=== PATIENT | female | born 1985 | race Caucasian/White ===

== ENCOUNTER 2016-12-19 15:40 | Emergency (ER) | payer BC ==
[~2016-12-19] VITALS: Ht 177.8 cm; Wt 72.8 kg
[~2016-12-19 15:40] MED LIST: ONDA4TAB46 PO
[2016-12-19 15:44] VITALS: TEMP 36.8; Ht 177.8 cm; Wt 72.8 kg
[2016-12-19] MEDS ORDERED: TRAMADOL HCL 50 MG TAB PO STA (16:08)
[2016-12-19] MEDS ORDERED: IBUPROFEN 800 MG TAB PO STA (16:08)
[2016-12-19 16:41] LABS: PREG INTERNAL NEGATIVE QC NEG CLEAR BACKGROUND; PREG INTERNAL POSITIVE QC POS CONTROL LINE; URINE APPEARANCE CLOUDY (CLEAR); URINE BILIRUBIN NEG (NEG); URINE COLOR YELLOW; URINE EPITHELIAL CELL AUTO >30 /lpf (0-5); URINE NITRITE NEG (NEG); URINE PH 6.5 (4.5-7.5); URINE SPECIFIC GRAVITY 1.023 (1.000-1.030); UROBILINOGEN NEG (NEG)
[2016-12-19 16:42] LABS: MANUAL MICROSCOPIC REQUIRED? NO; REVIEW REQ? YES
[2016-12-19] MEDS ORDERED: SERT-234 PO (16:49)
[2016-12-19] MEDS ORDERED: SERT50TA PO (16:49)
--- NOTE | 2016-12-19 18:41 | DIAGNOSTIC IMAGING REPORT ---
PELVIC COMPLETE NON OB, TRANSVAG-FEMALE PELVIS CLINICAL HISTORY: 31 years-old Female presenting with LLQ abd pain, dyspareunia, last menstrual period 3 weeks ago. TECHNIQUE: Real-time grayscale and color and spectral Doppler ultrasound imaging of the pelvis was performed first using a transabdominal probe and subsequently transvaginal for better characterization. COMPARISON: 08/02/2007. FINDINGS: Uterus: Arcuate configuration. Anteverted. The uterus measures 8.0 x 3.3 x 5.2 cm. Endometrial stripe measures 8 mm in thickness. Endometrium normal-appearing. Cervix normal. Right adnexa: Right ovary with multiple follicles. Right ovary measures 4.0 x 1.9 x 2.5 cm. Normal color Doppler flow and arterial and venous waveforms within the ovarian parenchyma. Left adnexa: Left ovary with multiple follicles. Left ovary measures 3.8 x 1.5 x 1.9 cm. Normal color Doppler flow and arterial and venous waveforms within the ovarian parenchyma. Other: Trace free fluid, likely physiologic. IMPRESSION: 1. No ovarian torsion. Free fluid is likely physiologic. Electronically signed by: Dm Sousa M.D. 12/19/2016 6:40 PM Dictated Date/Time: 12/19/2016 6:37 PM
[2016-12-19] MEDS ORDERED: OXYC1TAB3 PO (19:18)
[2016-12-19 19:26] VITALS: BP 105/68; PULSE 63; O2SAT 96
--- NOTE | 2016-12-19 20:46 | EMERGENCY ROOM VISIT NOTE ---
History First contact with patient: 15:48 Chief Complaint: ABDOMINAL PAIN Stated Complaint: LOWER LF ABD PAIN Nursing Triage Summary: triage note: pain in the left lower abdominal with nausea, denies v,d normal bm pt states she had (sex two weeks ago and felt pain the next day)used condom History of Present Illness The patient is a 31 year old female who presents to the Emergency Room with complaints of lower abdominal pain since having sex 2 weeks ago. The patient reports a mild clear drainage without malodor. Last menstruation was 3 weeks ago. The patient denies . Patient reports that her last sexual encounter was with a new partner. There was caught in use. Prior to her last sex, she had a partner of 5 years with last sex occurring approximately 2 weeks before her last partner. The patient is concerned that there may be a condom stuck in her vagina. She denies any nausea, vomiting, urinary symptoms, diarrhea or back pain. She does have an appointment scheduled with [facility] on Thursday at 7:45 PM, but came to the emergency department because they could not see her sooner and is having worsening pain. Review of Systems HEENT: Denies dizziness, visual problems, hearing loss, tinnitus. Denies difficulty swallowing or oral lesions. PULMONARY: Denies cough, shortness of breath, sputum production or hemoptysis. CARDIOVASCULAR: Denies chest pain, palpitations, dyspnea on exertion, orthopnea or peripheral edema. GASTROINTESTINAL: Denies diarrhea, constipation, nausea or vomiting, otherwise see history of present illness. GENITOURINARY: Denies dysuria, frequency, urgency or nocturia. NEUROLOGIC: Denies history of epilepsy, CVA, TIA or chronic headaches. MUSCULOSKELETAL: Denies history of joint tenderness/swelling. SKIN: Denies rashes or lesions. PSYCHIATRIC: Denies history of depression or mental illness. ENDOCRINE: Denies history of diabetes or thyroid disorders. Past Medical/Surgical History Medical Problems: (1) Calculus Of Ureter (2) Pyelonephritis Nos (3) Tobacco Use Disorder Surgical Problems: (1) No history of previous surgery Family History FH: cancer FH: diabetes mellitus FH: heart disease FH: hypertension FH: kidney disease Social History Smoking Status: Current Every Day Smoker Alcohol Use: occasionally Marital Status: single Occupation Status: employed Current/Historical Medications Scheduled Sertraline (Zoloft), 50 MG PO DAILY Sertraline (Zoloft), 100 MG PO DAILY Scheduled PRN Oxycodone Ir (Roxicodone Ir), 1-2 TAB PO Q4H PRN for Pain Allergies Coded Allergies: No Known Allergies (Unverified , 04/30/10) Physical Exam Vital Signs Date Time Temp Pulse Resp B/P (MAP) Pulse Ox O2 Delivery O2 Flow Rate FiO2 12/19/16 19:26 63 16 105/68 96 12/19/16 17:56 64 16 108/72 98 Room Air 12/19/16 15:44 36.8 80 18 116/76 98 Room Air Physical Exam CONSTITUTIONAL: Healthy and well nourished. Alert and oriented X 3 with positive affect. Patient does not appear in any acute distress. HEENT: Normocephalic, atraumatic. Pupils equal, round and reactive. Ears and nares are clear. No scleral icterus or conjunctival injection. NECK: Full active range of motion without discomfort. RESPIRATORY: Clear to auscultation bilaterally with no wheezing, crackles, rhonchi or stridor. CARDIOVASCULAR: Regular rate and rhythm with no murmurs, rubs or gallops. GASTROINTESTINAL: Bowel sounds present in all quadrants. Patient has mild suprapubic tenderness to palpation. Negative McBurney's point tenderness. Negative Rovsing sign. Negative CVA tenderness. Negative heel tap. GENITOURINARY: With a female nurse personal security specialist present, speculum and bimanual exam were performed. Normal external genitalia. Speculum exam does not show any vaginal wall trauma. No discomfort with insertion of the speculum. The cervix was not visualized or palpable, suggesting retroflexed uterus. There was no tenderness to palpation over the anterior uterine wall. She has mild tenderness to the left adnexa without any palpable fullness or masses. No tenderness to palpation of the right adnexa. Ovaries could not be palpated. It is noted that the patient does have a white adherent plaque on the visible cervix and vaginal cuff. No obvious malodor. MUSCULOSKELETAL: Full range of motion of all joints without discomfort. INTEGUMENTARY: No rash or other significant dermatologic conditions noted. NEUROLOGIC: No focal neurologic deficits noted. Medical Decision & Procedures ER Provider Diagnostic Interpretation: Pelvic ultrasound does not show any areas acute findings. Radiologist report is as follows: PELVIC COMPLETE NON OB, TRANSVAG-FEMALE PELVIS CLINICAL HISTORY: 31 years-old Female presenting with LLQ abd pain, dyspareunia, last menstrual period 3 weeks ago. TECHNIQUE: Real-time grayscale and color and spectral Doppler ultrasound imaging of the pelvis was performed first using a transabdominal probe and subsequently transvaginal for better characterization. COMPARISON: 08/02/2007. FINDINGS: Uterus: Arcuate configuration. Anteverted. The uterus measures 8.0 x 3.3 x 5.2 cm. Endometrial stripe measures 8 mm in thickness. Endometrium normal-appearing. Cervix normal. Right adnexa: Right ovary with multiple follicles. Right ovary measures 4.0 x 1.9 x 2.5 cm. Normal color Doppler flow and arterial and venous waveforms within the ovarian parenchyma. Left adnexa: Left ovary with multiple follicles. Left ovary measures 3.8 x 1.5 x 1.9 cm. Normal color Doppler flow and arterial and venous waveforms within the ovarian parenchyma. Other: Trace free fluid, likely physiologic. IMPRESSION: 1. No ovarian torsion. Free fluid is likely physiologic. Laboratory Results Test 12/19/16 16:25 Urine Color YELLOW Urine Appearance CLOUDY (CLEAR) Urine pH 6.5 (4.5-7.5) Urine Specific Girard 1.023 (1.000-1.030) Urine Protein NEG (NEG) Urine Glucose (UA) NEG (NEG) Urine Ketones NEG (NEG) Urine Occult Blood NEG (NEG) Urine Nitrite NEG (NEG) Urine Bilirubin NEG (NEG) Urine Urobilinogen NEG (NEG) Urine Leukocyte Esterase MODERATE (NEG) Urine WBC (Auto) 5-10 /hpf (0-5) Urine RBC (Auto) 0-4 /hpf (0-4) Urine Hyaline Casts (Auto) 1-5 /lpf (0-5) Urine Epithelial Cells (Auto) >30 /lpf (0-5) Urine Bacteria (Auto) 1+ (NEG) Urine Test NEG (NEG) Date/Time Source Procedure Growth Status 12/19/16 16:25 Vaginal Drainage Trichomonas Preparation - Final Complete The above labs were reviewed. Urinalysis is not suggestive of infection, showing a contaminated sample. Urine culture is pending. Trichomonas wet mount is negative. STI cultures and vaginal cultures were ordered and are pending. Medications Administered Medications (Trade) Dose Ordered Sig/Gillian Route Start Time Stop Time Status Last Admin Dose Admin Ibuprofen (Motrin Tab) 800 mg NOW STAT PO 12/19/16 16:08 12/19/16 16:15 DC 12/19/16 16:37 800 MG Tramadol HCl (Ultram Tab) 50 mg ONE STAT PO 12/19/16 16:08 12/19/16 16:15 DC 12/19/16 16:37 50 MG ED Course Patient history and physical exam were performed. Nurse's notes were reviewed. Vital signs were reviewed and were normal. Pelvic exam was recommended, and performed with nurse personal security specialist supervision. Examination shows mild left adnexal tenderness to palpation, and white material within the vaginal vault. The cervix could not be palpated. Labs were reviewed to show no Trichomonas or clue cells. Gram stain shows multiple gram-positive bacilli. Vaginal and STI cultures are currently pending. Based on history and physical exam findings, I did suggest continued follow-up with [facility] on Thursday. Although it would be unusual to have diverticulitis or appendicitis over an extended two-week period of time, she was instructed to return to the emergency department for any progressively worsening symptoms. The patient was encouraged to alternate ibuprofen and Tylenol as needed for pain. She was administered IV Zofran 800 mg and tramadol while in the emergency department. She was provided a prescription for OxyIR if needed for worse pain over the weekend. The patient was happy with plan of care, and voiced understanding of all discharge instructions. Medical Decision As indicated in history of present illness, the patient reports onset of discomfort after having vaginal sex 2 weeks ago. The history alone is most consistent with dyspareunia, however she has had persistent and now worsening discomfort. Her clinical exam does show left adnexal tenderness to palpation. Her clinical exam also does not suggest acute peritonitis. She has no rebound, rigidity or guarding at this time. Urinalysis is not convincing for UTI. Clinical exam also is not consistent with pyelonephritis or appendicitis. She has no hematuria to suggest kidney stone. [place] Drug Monitoring Program Search Results: patient reviewed within database Impression Primary Impression: LLQ abdominal pain Additional Impression: Dyspareunia Departure Information Prescriptions Oxycodone Ir (Roxicodone Ir) 5 Mg Tab 1-2 TAB PO Q4H Y for Pain, #15 TAB For Initial Treatment Prov: Ghassan Casey PA 12/19/16 Referrals No Doctor, Assigned (PCP) Patient Instructions [facility] Problem Qualifiers
[2016-12-23 00:44] LABS: CHLAMYDIA TRACH RNA*** NOT DETECTED (NOT DETECTED); GC (NEIS GONORRHOEAE)RNA** NOT DETECTED (NOT DETECTED)
[2016-12-23 14:14] LABS: HERPES SIMPLEX CULT SOURCE OTHER-CERVIX; HERPES SIMPLEX VIRUS CULT NOT ISOLATED (NOT ISOLATED)
== END 2016-12-19 19:30 | disposition home or self-care (01) ==
LOC: C.EDB 15:41 → C.EDA 19:30
DX: R10.32 Left lower quadrant pain (principal); N94.10 Unspecified dyspareunia; Z83.3 Family history of diabetes mellitus; Z82.49 Family history of ischemic heart disease and other diseases of the circulatory system; F17.200 Nicotine dependence, unspecified, uncomplicated

== ENCOUNTER 2020-03-01 22:33 | Inpatient (IN) ==
[2020-03-02] MEDS ORDERED: OXYTOCIN 30 UNITS/500 ML BAG IV PRN ×3 (00:20→19:09)
[2020-03-02] MEDS: LACTATED RINGER'S 1,000 ML IV PRN ×3 (00:45→12:08)
[2020-03-02 00:57] LABS: Hematocrit (blood only) 35.1 % (37-47); Hemoglobin 11.9 g/dL (12.0-16.0); Mean Corpuscular Hemoglobin 30.3 pg (25-34); Mean Corpuscular Hgb Conc 33.9 g/dL (32-36); Mean Corpuscular Volume 89.3 fL (80-100); Mean Platelet Volume 10.2 fL (7.4-10.4); Platelet Count 276 K/uL (130-400); RDW Coefficient of Variation 13.4 % (11.5-14.5); RDW Standard Deviation 43.8 fL (36.4-46.3); Red Blood Count 3.93 M/uL (4.2-5.4); White Blood Count 15.31 K/uL (4.8-10.8)
[2020-03-02] MEDS ORDERED: BUPIVACAINE 0.25% 30 ML VIAL ONE ×2 (00:59→11:46)
[2020-03-02] MEDS ORDERED: ePHEDrine sulfate 50 MG/ML AMP ONE (00:59)
[2020-03-02] MEDS ORDERED: SODIUM CHLORIDE 0.9% INJ 10 ML VIAL ONE (00:59)
[2020-03-02] MEDS ORDERED: fentaNYL citrate 100 MCG/2 ML VIAL ONE (01:00)
[2020-03-02] MEDS ORDERED: fentaNYL 2MCG/ML ROPIVACAINE 1.25MG/ML 100 ML BAG EPI ONE (01:00)
[2020-03-02] MEDS ORDERED: diphenhydrAMINE 50 MG/ML VIAL IV PRN (01:19)
[2020-03-02] MEDS ORDERED: ePHEDrine sulfate 50 MG/ML AMP IV PRN (01:19)
[2020-03-02] MEDS ORDERED: NALOXONE HCL 1 MG in SODIUM CHLORIDE 0.9% 1000ML 1,000 ML IV PRN (01:19)
[2020-03-02] MEDS ORDERED: NALOXONE HCL 0.4 MG/1 ML VIAL/CARP IV PRN (01:19)
[2020-03-02] MEDS ORDERED: ONDANSETRON INJ 2 MG/ML 2 ML VIAL IV PRN (01:19)
--- NOTE | 2020-03-02 01:23 | Anesthesiology Consultation ---
Date of Service March 02, 2020 Assessment & Plan Chart Review Chart Review: Patient NOT seen in Pre Admission Testing and Acceptable Risk for Labor Epidural Consults Requested none ASA ASA2 Proposed Anesthesia Anesthesia Type: Labor Epidural and CSE Risk / Benefits Reviewed With: PT / POA / Parent / Guardian, Accepts Plan and Informed Consent Obtained History Height/Weight Height: 5 ft 10 in Weight: 86.636 kg Allergies Allergy/AdvReac Type Severity Reaction Status Date / Time No Known Allergies Allergy Verified 03/01/20 22:37 Medications Home Medications Medication Instructions Recorded Confirmed Last Taken Sertraline (Zoloft) 50 mg PO DAILY #0 tab 12/19/16 03/01/20 02/28/20 Sertraline (Zoloft) 100 mg PO DAILY #0 tab 12/19/16 03/01/20 02/28/20 Active Medications Generic Name Dose Route Start Last Admin Trade Name Freq PRN Reason Stop Dose Admin Lactated Ringer's 1,000 mls @ 125 mls/hr 03/02/20 00:20 03/02/20 01:17 Lr IV 03/04/20 00:19 125 mls/hr .Q8H PRN Infusion L&D Protocol Protocol NPO Date Last Intake of Fluids: 03/01/20 Time Last Intake of Fluids: 20:00 Date Last Intake of Solids: 03/01/20 Time Last Intake of Solids: 20:00 Past Medical History Medical History Anxiety Idiopathic scoliosis Exercise / Class Metabolic Activity II 4-5 Yardwork/Stairs/Walk up hill Past Anesthesia History No Hx of Anesthesia Complications and No Family Hx of Anesthesia Complications History of PONV No Hx of PONV and No Hx of Motion Sickness Social History Smoking Status: Former smoker Hx Alcohol Use: No Hx Substance Use: No Review of Systems no chest pain or sob Physical Exam Vital Signs Last Vital Signs Pulse 85 03/01/20 23:00 BP 126/69 03/01/20 23:00 SpO2 99 T 37 RR 16 ENMT Mouth: no TMJ abnormality Thyromental Distance: > or= 3.5 Finger Breadths Mallampati Class: II Neck normal visual inspection Respiratory normal respiratory effort Auscultation: lungs clear to auscultation bilaterally Cardiovascular Rate/Rhythm: regular rate and regular rhythm Musculoskeletal Spine: normal cervical ROM Neurologic moves all extremities Psychiatric Orientation: alert and oriented x 3 Testing Laboratory Results 03/02/20 00:31
[2020-03-02] MEDS: fentaNYL 2MCG/ML ROPIVACAINE 1.25MG/ML 100 ML BAG EPI PRN ×3 (01:44→15:56)
--- NOTE | 2020-03-02 08:33 | Obstetrical Progress Note ---
Date of Service March 02, 2020 Assessment & Plan Admission and Anticipated Discharge Date Admission Date: March 02, 2020 Physical Exam Genitourinary: Manual OB Exam: + cervical dilation 9 cm, + cervical effacement 100%, + station 0 and + amniotic fluid clear OB Exam Monitor Tracing: + external FHT monitor used, + external uterine monitor used, + category I and + normal FHT variability AROM with Amni-hook clear fluid Results & Data ([facility]) Vital Signs (Past 12 Hours) Vital Signs Temp Pulse Resp BP Pulse Ox 03/02/20 08:30 78 97 03/02/20 08:29 75 103/64 03/02/20 08:25 79 99 03/02/20 08:21 68 94 03/02/20 08:20 66 94 03/02/20 08:16 66 94 03/02/20 08:15 66 94 03/02/20 08:14 65 105/63 03/02/20 08:11 73 94 03/02/20 08:10 67 95 03/02/20 08:05 67 94 03/02/20 08:00 65 95 03/02/20 07:59 64 107/60 03/02/20 07:56 64 94 03/02/20 07:55 66 95 03/02/20 07:50 59 L 95 03/02/20 07:45 55 L 108/59 L 96 03/02/20 07:40 63 97 03/02/20 07:35 61 97 03/02/20 07:30 88 97 03/02/20 07:29 78 99/54 L 03/02/20 07:25 78 96 03/02/20 07:20 83 97 03/02/20 07:15 72 96 03/02/20 07:14 36.8 C 72 20 105/56 L 03/02/20 07:10 80 96 03/02/20 07:05 76 96 03/02/20 07:00 77 96 03/02/20 06:59 67 106/58 L 03/02/20 06:55 69 97 03/02/20 06:50 69 97 03/02/20 06:45 74 109/57 L 96 03/02/20 06:40 71 97 03/02/20 06:35 72 97 03/02/20 06:30 71 102/59 L 97 12/18/20 06:25 78 97 1218/20 06:20 75 96 1218/20 06:15 68 121/58 L 98 18/20 06:10 91 H 97 03/02/20 06:06 79 94 03/02/20 06:05 76 95 18/20 06:00 71 95 03/02/20 05:59 70 101/66 12/18/20 05:55 71 95 18/20 05:53 73 93 18/20 05:50 70 95 18/20 05:45 81 101/59 L 97 03/02/20 05:40 76 95 1218/20 05:39 74 94 1218/20 05:35 68 94 18/20 05:34 60 94 18/20 05:30 74 94 1218/20 05:29 71 110/60 1218/20 05:28 64 94 18/20 05:25 72 95 18/20 05:22 72 94 03/02/20 05:20 73 94 03/02/20 05:17 68 94 03/02/20 05:15 68 94 03/02/20 05:14 61 109/62 1218/20 05:12 78 94 03/02/20 05:10 72 94 03/02/20 05:05 70 94 03/02/20 05:00 67 104/59 L 94 03/02/20 04:55 65 94 18/20 04:50 67 93 1218/20 04:46 58 L 100/57 L 18/20 04:45 59 L 94 03/02/20 04:40 66 96 18/20 04:38 65 94 18/20 04:35 66 95 18/20 04:33 67 94 1218/20 04:30 63 101/59 L 96 18/20 04:25 64 93 1218/20 04:20 59 L 94 18/20 04:19 62 94 1218/20 04:15 62 95 18/20 04:14 58 L 99/58 L 12/18/20 04:13 58 L 94 18/20 04:10 65 94 1218/20 04:07 60 94 03/02/20 04:05 71 94 12/18/20 04:02 66 94 1218/20 04:00 65 95 12/18/20 03:59 71 100/56 L 1218/20 03:55 67 93 1218/20 03:52 63 94 12/18/20 03:50 69 94 12/18/20 03:45 65 94 1218/20 03:44 62 101/61 12/18/20 03:40 64 92 1218/20 03:38 69 94 1218/20 03:35 63 97 12/18/20 03:30 67 92 12/18/20 03:29 67 107/59 L 1218/20 03:25 65 93 12/18/20 03:21 62 94 12/18/20 03:20 62 94 1218/20 03:15 62 93 1218/20 03:14 59 L 101/56 L 18/20 03:10 63 93 1218/20 03:05 62 93 1218/20 03:03 57 L 94 20 03:00 58 L 104/57 L 94 1218/20 02:57 64 94 1218/20 02:55 62 95 12/18/20 02:50 63 95 1218/20 02:45 63 96 1218/20 02:44 56 L 94 18/20 02:40 62 94 1218/20 02:39 66 93 1218/20 02:35 74 96 1218/20 02:30 72 97 1218/20 02:29 69 101/58 L 18/20 02:25 84 96 1218/20 02:20 84 94 1218/20 02:18 72 94 1218/20 02:15 72 108/69 95 1218/20 02:10 75 94 1218/20 02:09 73 94 1218/20 02:05 76 96 1218/20 02:00 72 95 1218/20 01:58 71 114/70 12/18/20 01:55 78 94 1218/20 01:54 75 115/73 12/18/20 01:52 82 114/72 1218/20 01:50 82 112/68 95 12/18/20 01:48 78 115/63 12/18/20 01:47 77 118/59 L 03/02/20 01:45 81 95 03/02/20 01:44 71 121/57 L 03/02/20 01:40 71 115/60 96 03/02/20 01:39 75 94 03/02/20 01:38 37.1 C 65 18 118/59 L 03/02/20 01:35 79 97 03/02/20 01:30 91 H 97 03/02/20 01:25 84 97 03/01/20 23:00 85 126/69
--- NOTE | 2020-03-02 18:55 | Delivery Summary ---
Vaginal Delivery Summary Date of Service March 02, 2020 Vaginal Delivery Summary Delivery Note live male AHSAN over intact perineum with delayed cord clamping and Apgars of 8/9 weight pending. Cord blood obtained and placenta delivered spontaneously and intact. Small first degree tear repaired with 3/0 Vicryl suture. EBL 250 ml. Final sponge, needle and instrument count are correct. Mom and baby stable.
--- NOTE | 2020-03-02 19:05 | Anesthesia Procedure Note ---
Date of Service March 02, 2020 Anesthesia Post Epidural Note Vital Signs Vital Signs: Temp Pulse Resp BP Pulse Ox 37.0 C 98 H 20 114/65 92 03/02/20 16:45 03/02/20 18:59 03/02/20 15:14 03/02/20 18:59 03/02/20 18:33 Notes Mental Status: alert / awake / arousable Nausea / Vomiting: adequately controlled Pain: adequately controlled Airway Patency, RR, SpO2: stable & adequate BP & HR: stable & adequate Hydration State: stable & adequate Neuraxial Anesthesia: was administered and sensory block is resolving Anesthetic Complications: no major complications apparent and Pt Satisfied with anesthetic care Epidural: Removed without complications and With tip intact
[2020-03-02] MEDS ORDERED: ACETAMINOPHEN 325 MG TAB PO PRN (19:09)
[2020-03-02] MEDS ORDERED: bisacodyL 10 MG SUPP PR PRN (19:09)
[2020-03-02] MEDS ORDERED: BENZOCAINE 20% AER SPR 82.5 GM CAN EXT PRN (19:09)
[2020-03-02] MEDS ORDERED: SUPERCREAM 0.870% 15 GM JAR EXT PRN (19:09)
[2020-03-02] MEDS ORDERED: HYDROCORTISONE ACETATE 25 MG SUPP PR PRN (19:09)
[2020-03-02] MEDS ORDERED: DIPHTHERIA/TETANUS/PERTUSSIS 0.5 ML SYR/VIAL IM ONE (19:09)
[2020-03-02] MEDS: DOCUSATE SODIUM 100 MG CAP PO SCH (20:56)
[2020-03-02] MEDS: SERTRALINE HCL 100 MG TABLET PO SCH (20:56)
[2020-03-03] MEDS: IBUPROFEN 600 MG TAB PO PRN ×3 (04:44→19:46)
[2020-03-03 08:55] LABS: Hematocrit (blood only) 30.1 % (37-47); Hemoglobin 9.8 g/dL (12.0-16.0); Mean Corpuscular Hemoglobin 29.5 pg (25-34); Mean Corpuscular Hgb Conc 32.6 g/dL (32-36); Mean Corpuscular Volume 90.7 fL (80-100); Platelet Count 216 K/uL (130-400); RDW Coefficient of Variation 13.7 % (11.5-14.5); RDW Standard Deviation 45.4 fL (36.4-46.3); Red Blood Count 3.32 M/uL (4.2-5.4); White Blood Count 14.32 K/uL (4.8-10.8)
[2020-03-03] MEDS ORDERED: SERTRALINE HCL 50 MG TABLET PO SCH (09:00)
[2020-03-03] MEDS ORDERED: SERTRALINE HCL 100 MG TABLET PO SCH (09:00)
--- NOTE | 2020-03-03 09:02 | Obstetrical Progress Note ---
Date of Service March 03, 2020 Assessment & Plan Admission and Anticipated Discharge Date Admission Date: March 02, 2020 Subjective Patient is seen and examined. She feels well, no complaints. Ambulating without dizziness Voiding without difficulty Tolerating regular diet with out N&V Bleeding is minimal No fever/ chills/ CP/ SOB/ N&V/ Leg pain Breast feeding without problems Vital Signs Temp Pulse Resp BP Pulse Ox 03/03/20 04:35 36.6 C 81 18 115/76 98 03/02/20 23:55 36.9 C 81 16 101/58 L 97 03/02/20 21:40 36.6 C 92 H 18 107/69 96 Lab Results 03/02/20 03/03/20 Range/Units 00:31 08:28 WBC 15.31 H 14.32 H (4.8-10.8) K/uL RBC 3.93 L 3.32 L (4.2-5.4) M/uL Hgb 11.9 L 9.8 L (12.0-16.0) g/dL Hct 35.1 L 30.1 L (37-47) % MCV 89.3 90.7 (80-100) fL MCH 30.3 29.5 (25-34) pg MCHC 33.9 32.6 (32-36) g/dL RDW Std Deviation 43.8 45.4 (36.4-46.3) fL RDW Coeff of Malcolm 13.4 13.7 (11.5-14.5) % Plt Count 276 216 (130-400) K/uL MPV 10.2 10.0 (7.4-10.4) fL PE: General: Alert, orientedx3, NAD Abd: soft, NT, fundus firm, below Umbilicus Perineum intact, Lochia rubra minimal Ext; NT, no edema AP: 35 yo s/p , ppd# 1 VSS Afebrile doing well Continue routine care All questions were answered D/C home tomorrow Results & Data ([facility]) Vital Signs (Past 12 Hours) Vital Signs Temp Pulse Resp BP Pulse Ox 03/03/20 04:35 36.6 C 81 18 115/76 98 03/02/20 23:55 36.9 C 81 16 101/58 L 97 03/02/20 21:40 36.6 C 92 H 18 107/69 96
[2020-03-03] MEDS: DOCUSATE SODIUM 100 MG CAP PO SCH ×2 (09:36→21:00)
[2020-03-03] MEDS: PRENATAL VITAMIN 1 TAB PO SCH (09:36)
[2020-03-03] MEDS ORDERED: bisacodyL 5 MG TABEC PO SCH (20:00)
[2020-03-03] MEDS: SERTRALINE HCL 100 MG TABLET PO SCH (21:00)
[2020-03-04] MEDS: IBUPROFEN 600 MG TAB PO PRN ×2 (01:04→13:49)
[2020-03-04 05:54] LABS: Basophils # (auto) 0.03 K/uL (0-0.2); Basophils % (auto) 0.3 %; Eosinophils # (auto) 0.13 K/uL (0-0.5); Eosinophils % (auto) 1.3 %; Immature Granulocytes # (auto) 0.02 K/uL (0.00-0.02); Immature Granulocytes % (auto) 0.2 %; Lymphocytes # (auto) 2.62 K/uL (1.2-3.4); Lymphocytes % (auto) 25.2 %; Mean Corpuscular Hemoglobin 29.3 pg (25-34); Mean Corpuscular Hgb Conc 32.1 g/dL (32-36); Mean Corpuscular Volume 91.2 fL (80-100); Mean Platelet Volume 9.6 fL (7.4-10.4); Monocytes # (auto) 1.02 K/uL (0.11-0.59); Monocytes % (auto) 9.8 %; Neutrophils # (auto) 6.57 K/uL (1.4-6.5); Neutrophils % (auto) 63.2 %; Platelet Count 216 K/uL (130-400); RDW Coefficient of Variation 13.8 % (11.5-14.5); RDW Standard Deviation 45.7 fL (36.4-46.3); Red Blood Count 3.07 M/uL (4.2-5.4); White Blood Count 10.39 K/uL (4.8-10.8)
[2020-03-04] MEDS: DOCUSATE SODIUM 100 MG CAP PO SCH (08:04)
[2020-03-04] MEDS: PRENATAL VITAMIN 1 TAB PO SCH (08:04)
--- NOTE | 2020-03-04 11:08 | Obstetrical Progress Note ---
Date of Service March 04, 2020 Assessment & Plan Admission and Anticipated Discharge Date Admission Date: March 02, 2020 Subjective Patient is seen and examined. She feels well, no complaints. Ambulating without dizziness Voiding without difficulty Tolerating regular diet with out N&V Bleeding is minimal No fever/ chills/ CP/ SOB/ N&V/ Leg pain Breast feeding without problems Vital Signs Temp Pulse Resp BP Pulse Ox 03/04/20 07:55 37.0 C 67 20 107/58 L 95 03/04/20 00:35 36.8 C 80 17 105/63 03/03/20 19:30 36.8 C 93 H 18 111/68 97 03/03/20 15:05 36.8 C 71 18 107/65 03/03/20 12:05 36.6 C 71 18 113/73 Lab Results 03/02/20 03/03/20 03/04/20 Range/Units 00:31 08:28 05:36 WBC 15.31 H 14.32 H 10.39 (4.8-10.8) K/uL RBC 3.93 L 3.32 L 3.07 L (4.2-5.4) M/uL Hgb 11.9 L 9.8 L 9.0 L (12.0-16.0) g/dL Hct 35.1 L 30.1 L 28.0 L (37-47) % MCV 89.3 90.7 91.2 (80-100) fL MCH 30.3 29.5 29.3 (25-34) pg MCHC 33.9 32.6 32.1 (32-36) g/dL RDW Std Deviation 43.8 45.4 45.7 (36.4-46.3) fL RDW Coeff of Malcolm 13.4 13.7 13.8 (11.5-14.5) % Plt Count 276 216 216 (130-400) K/uL MPV 10.2 10.0 9.6 (7.4-10.4) fL Immature Gran % (Auto) 0.2 % Neut % (Auto) 63.2 % Lymph % (Auto) 25.2 % Leon % (Auto) 9.8 % Eos % (Auto) 1.3 % Baso % (Auto) 0.3 % Neut # (Auto) 6.57 H (1.4-6.5) K/uL Lymph # (Auto) 2.62 (1.2-3.4) K/uL Leon # (Auto) 1.02 H (0.11-0.59) K/uL Eos # (Auto) 0.13 (0-0.5) K/uL Baso # (Auto) 0.03 (0-0.2) K/uL Immature Gran # (Auto) 0.02 (0.00-0.02) K/uL PE: General: Alert, orientedx3, NAD Abd: soft, NT, fundus firm, below Umbilicus Perineum intact, Lochia rubra minimal Ext; NT, no edema AP: 35 yo s/p , ppd# 2 VSS Afebrile doing well Continue routine care All questions were answered Discussed when to call D/C home , f/u in office Results & Data ([facility]) Vital Signs (Past 12 Hours) Vital Signs Temp Pulse Resp BP Pulse Ox 03/04/20 07:55 37.0 C 67 20 107/58 L 95 03/04/20 00:35 36.8 C 80 17 105/63
== END 2020-03-04 14:00 | disposition home or self-care (01) | DRG 807 ==
LOC: 4S1 22:33 → 4S2 03-02 21:10

== ENCOUNTER 2023-01-03 06:02 | Inpatient (IN) ==
[2023-01-03] MEDS ORDERED: LIDOCAINE 1% LOCAL 20 ML VIAL INFIL PRN (06:44)
[2023-01-03] MEDS ORDERED: OXYTOCIN 30 UNITS/500 ML BAG IV PRN ×2 (06:44→12:10)
[2023-01-03] MEDS ORDERED: LIDOCAINE 2%/EPINEPHRINE 1:200,000 20 ML PF ONE (06:59)
[2023-01-03] MEDS ORDERED: ePHEDrine sulfate 50 MG/ML AMP ONE (06:59)
[2023-01-03] MEDS ORDERED: fentaNYL citrate PF 100 MCG/2 ML VIAL ONE (06:59)
[2023-01-03] MEDS ORDERED: SODIUM CHLORIDE 0.9% PF INJ 10 ML VIAL ONE (06:59)
[2023-01-03] MEDS ORDERED: BUPIVACAINE 0.25% PF 30 ML VIAL ONE (06:59)
[2023-01-03] MEDS ORDERED: fentaNYL 2MCG/ML ROPIVACAINE 1.25MG/ML 100 ML BAG EPI ONE (07:00)
[2023-01-03] MEDS ORDERED: BUTORPHANOL TARTRATE 1 MG/ML VIAL ONE (07:04)
[2023-01-03] MEDS ORDERED: BUTORPHANOL TARTRATE 1 MG/ML VIAL IV STA (07:08)
[2023-01-03] MEDS: LACTATED RINGER'S 1,000 ML IV PRN ×2 (07:08→07:58)
--- NOTE | 2023-01-03 07:15 | History & Physical Report ---
Date of Service January 03, 2023 Assessment & Plan (1) Term : Plan: Admit in active labor epidural pending Admission and Anticipated Discharge Date Admission Date: January 03, 2023 History of Present Illness Chief Complaint: onset of labor Primary Care Provider: [facility] PCP 37 F [id number] at term presents to :&D in active labor. GBS is negative Allergies Allergy/AdvReac Type Severity Reaction Status Date / Time No Known Allergies Allergy Verified 01/03/23 06:26 Home Medications Medication Instructions Recorded Confirmed Type Sertraline (Zoloft) 100 mg PO DAILY #0 tabs 12/19/16 01/03/23 History ferrous sulfate 325 mg (65 mg 325 mg PO DAILY #60 tabs 03/04/20 01/03/23 Rx iron) tablet vits no.124-ferrous fum 1 tab PO DAILY@08 #60 tabs 03/04/20 01/03/23 Rx 27 mg iron-folic acid 800 mcg tablet ( Vitamin) Patient History Medical History Anxiety Idiopathic scoliosis Uterine contractions at greater than 20 weeks of gestation Surgical History [place] teeth extracted Social History Smoking Status: Former smoker Hx Alcohol Use: No Hx Substance Use: No Preferred Language: Comoran Communication Ability: Effective Perinatal Director Required: No Beliefs That Will Affect Care: None marital status: Single Current Living Situation: Significant Other Current Living Situation Comment: House with SO and son Other Information That Helps Us Care for You: No Feels Safe at Home: Yes Safety Concerns: Feels Safe At This Time Assistive Devices: None 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 Review of Systems All systems reviewed & are unremarkable except as noted in HPI & below Physical Exam Constitutional: WD/WN, vitals as above Respiratory: normal respiratory effort, lungs clear to auscultation Cardiovascular: RRR, no murmur, no edema Musculoskeletal: Extremities: extremities normal to inspection Skin: no rashes, warm and dry Neurologic: patellar DTR's 2+ bilat, sensation intact Psychiatric: A+Ox3, euthymic affect Genitourinary: OB Exam Abdomen: + fundal height and + vertex Manual OB Exam: + cervical dilation 5 cm, + cervical effacement 90% and + station -1 OB Exam Monitor Tracing: + external FHT monitor used, + category I and + normal FHT variability Results & Data Vital Signs (Past 12 Hours) Vital Signs Temp Pulse Resp BP O2 Del Method 01/03/23 06:28 36.9 C 18 Room Air 01/03/23 06:23 36.9 C 73 20 114/71 Monitoring External Monitor Cat 1
[2023-01-03 07:21] LABS: Hematocrit (blood only) 37.9 % (37.0-47.0); Hemoglobin 12.7 g/dl (12.0-16.0); Mean Corpuscular Hemoglobin 30.6 pg (25.0-34.0); Mean Corpuscular Hgb Conc 33.5 g/dL (32.0-36.0); Mean Corpuscular Volume 91.3 fL (80.0-100.0); Mean Platelet Volume 10.9 fL (9.4-12.4); Platelet Count 197 K/uL (130-400); RDW Standard Deviation 53.3 fL (36.4-46.3); Red Blood Count 4.15 M/uL (4.20-5.40); White Blood Count 8.07 K/ul (4.8-10.8)
--- NOTE | 2023-01-03 07:40 | Anesthesiology Consultation ---
Date of Service January 03, 2023 Assessment & Plan Chart Review Chart Review: Patient NOT seen in Pre Admission Testing and Acceptable Risk for Labor Epidural Consults Requested none ASA ASA2 Proposed Anesthesia Anesthesia Type: Labor Epidural Risk / Benefits Reviewed With: PT / POA / Parent / Guardian, Accepts Plan and Informed Consent Obtained History Height/Weight Height: 5 ft 10 in Weight: 90.265 kg Allergies Allergy/AdvReac Type Severity Reaction Status Date / Time No Known Allergies Allergy Verified 01/03/23 06:26 Medications Home Medications Medication Instructions Recorded Confirmed Last Taken Sertraline (Zoloft) 100 mg PO DAILY #0 tabs 12/19/16 01/03/23 01/02/23 ferrous sulfate 325 mg (65 mg 325 mg PO DAILY #60 tabs 03/04/20 01/03/23 01/02/23 iron) tablet vits no.124-ferrous fum 1 tab PO DAILY@08 #60 tabs 03/04/20 01/03/23 01/02/23 27 mg iron-folic acid 800 mcg tablet ( Vitamin) Active Medications Generic Name Dose Route Start Last Admin Trade Name Freq PRN Reason Stop Dose Admin Lactated Ringer's 1,000 mls @ 125 mls/hr 01/03/23 06:44 01/03/23 07:08 Lr IV 01/05/23 06:43 999 mls/hr .Q8H PRN Administration L&D Protocol Protocol NPO Date Last Intake of Fluids: 01/03/23 Time Last Intake of Fluids: 07:00 Date Last Intake of Solids: 01/02/23 Time Last Intake of Solids: 23:00 Past Medical History Medical History Anxiety Idiopathic scoliosis Uterine contractions at greater than 20 weeks of gestation Exercise / Class Metabolic Activity 1 > 8 Run/Swim/Ski/Tennis Past Surgical History Surgical History Latimer teeth extracted Past Anesthesia History No Hx of Anesthesia Complications and No Family Hx of Anesthesia Complications History of PONV No Hx of PONV and No Hx of Motion Sickness Social History Smoking Status: Former smoker Hx Alcohol Use: No Hx Substance Use: No Review of Systems ROS Unobtainable: All systems reviewed & are unremarkable except as noted in HPI & below Physical Exam Vital Signs Last Vital Signs Temp 36.9 C 01/03/23 06:28 Pulse 73 01/03/23 06:23 Resp 18 01/03/23 06:28 BP 114/71 01/03/23 06:23 O2 Del Method Room Air 01/03/23 06:28 ENMT Mouth: no TMJ abnormality Thyromental Distance: > or= 3.5 Finger Breadths Mallampati Class: II Neck normal visual inspection and trachea midline; neck extension not limited Respiratory normal respiratory effort Auscultation: lungs clear to auscultation bilaterally Cardiovascular Rate/Rhythm: regular rate and regular rhythm Heart Sounds: no murmur Musculoskeletal Spine: normal cervical ROM Extremities: full ROM of extremities Neurologic moves all extremities Psychiatric Orientation: alert and oriented x 3 Testing Laboratory Results 01/03/23 07:03
[2023-01-03] MEDS ORDERED: ePHEDrine sulfate 50 MG/ML AMP IV PRN (07:43)
[2023-01-03] MEDS ORDERED: LIDOCAINE 2% MPF LOCAL 5 ML VIAL EPI PRN (07:43)
[2023-01-03] MEDS ORDERED: NALBUPHINE HCL INJ 10 MG/ML AMP IV PRN (07:43)
[2023-01-03] MEDS ORDERED: fentaNYL citrate PF 100 MCG/2 ML VIAL EPI PRN (07:43)
[2023-01-03] MEDS ORDERED: fentaNYL citrate PF 100 MCG/2 ML VIAL EPI STA (07:43)
[2023-01-03] MEDS ORDERED: NALOXONE HCL 0.4 MG/1 ML VIAL/CARP IV PRN (07:43)
[2023-01-03] MEDS ORDERED: SODIUM CHLORIDE 0.9% PF INJ 10 ML VIAL EPI PRN (07:43)
[2023-01-03] MEDS ORDERED: fentaNYL 2MCG/ML ROPIVACAINE 1.25MG/ML 100 ML BAG EPI PRN (07:43)
[2023-01-03] MEDS ORDERED: LIDOCAINE 2%/EPINEPHRINE 1:200,000 20 ML PF EPI STA (07:43)
[2023-01-03] MEDS ORDERED: diphenhydrAMINE 50 MG/ML VIAL IV PRN (07:43)
[2023-01-03] MEDS ORDERED: NALOXONE HCL 1 MG in SODIUM CHLORIDE 0.9% 1,000 ML IV PRN (07:43)
[2023-01-03] MEDS ORDERED: ROPIVACAINE 0.5% PF 5 MG/ML 20 ML VIAL EPI PRN (07:43)
[2023-01-03] MEDS ORDERED: BUPIVACAINE 0.25% PF 30 ML VIAL EPI PRN (07:43)
[2023-01-03] MEDS ORDERED: BUPIVACAINE 0.25% PF 30 ML VIAL EPI STA (07:43)
[2023-01-03] MEDS ORDERED: SODIUM CHLORIDE 0.9% PF INJ 10 ML VIAL EPI STA (07:43)
[2023-01-03] MEDS ORDERED: miSOPROStoL 200 MCG TAB ONE (11:07)
[2023-01-03] MEDS ORDERED: BENZOCAINE 20% SPRY 85 APPLN/85 GM CAN EXT PRN (12:10)
[2023-01-03] MEDS ORDERED: ACETAMINOPHEN 325 MG TAB PO PRN (12:10)
[2023-01-03] MEDS ORDERED: DIPHTHERIA/TETANUS/PERTUSSIS Vaccine (Tdap, Age 7+yrs) 0.5mL SYR/VL IM ONE (12:10)
[2023-01-03] MEDS ORDERED: miSOPROStoL 200 MCG TAB PR ONE (12:10)
[2023-01-03] MEDS ORDERED: HYDROCORTISONE ACETATE 25 MG SUPP PR PRN (12:10)
[2023-01-03] MEDS ORDERED: bisacodyL 10 MG SUPP PR PRN (12:10)
--- NOTE | 2023-01-03 12:12 | Delivery Summary ---
Vaginal Delivery Summary Date of Service DELIVERY NOTE Patient delivered a live male in left occiput anterior presentation there was no nuchal cord which was easily reduced. was delivered and placed on mother's abdomen. Delayed cord clamping was performed. Cord blood is obtained Cord gasses are not obtained Meconium is absnet Placenta is spontaneously delivered. Placenta appears grossly normal and has 3 vessel cord Inspection of the perineum showed a second-degree midline laceration. Laceration is repaired in layers with 2-0 Vicryl in layers Rectal exam post repair showed good sphincter tone no sutures palpated in the rectum. Estimated blood loss is 450 cc per Infants weight and scores are in the pediatric record [facility]
--- NOTE | 2023-01-03 13:24 | Anesthesia Procedure Note ---
Date of Service January 03, 2023 Anesthesia Post Epidural Note Vital Signs Vital Signs: Temp Pulse Resp BP Pulse Ox O2 Del Method 37.4 C 70 20 100/58 L 91 Room Air 01/03/23 09:36 01/03/23 13:17 01/03/23 11:32 01/03/23 13:17 01/03/23 11:04 01/03/23 06:28 Pain Intensity Bilateral Abdomen: Pain Intensity: 1 Notes Mental Status: alert / awake / arousable and participated in evaluation Nausea / Vomiting: adequately controlled Pain: adequately controlled Airway Patency, RR, SpO2: stable & adequate BP & HR: stable & adequate Hydration State: stable & adequate Neuraxial Anesthesia: was administered and sensory block is resolving Anesthetic Complications: no major complications apparent Epidural: Removed without complications and With tip intact
[2023-01-03] MEDS: IBUPROFEN 600 MG TAB PO PRN ×2 (14:20→20:40)
[2023-01-03] MEDS ORDERED: SERTRALINE HCL 100 MG TABLET PO SCH (21:00)
[2023-01-03] MEDS ORDERED: DOCUSATE SODIUM 100 MG CAP PO SCH (21:00)
[2023-01-04] MEDS: IBUPROFEN 600 MG TAB PO PRN ×2 (00:24→08:18)
[2023-01-04 07:46] LABS: Hematocrit (blood only) 36.2 % (37.0-47.0); Hemoglobin 11.9 g/dl (12.0-16.0); Mean Corpuscular Hemoglobin 30.1 pg (25.0-34.0); Mean Corpuscular Hgb Conc 32.9 g/dL (32.0-36.0); Mean Corpuscular Volume 91.6 fL (80.0-100.0); Platelet Count 162 K/uL (130-400); RDW Coefficient of Variation 16.1 % (11.5-14.5); RDW Standard Deviation 53.6 fL (36.4-46.3); Red Blood Count 3.95 M/uL (4.20-5.40); White Blood Count 7.09 K/ul (4.8-10.8)
[2023-01-04] MEDS ORDERED: PRENATAL VITAMIN 1 TAB PO SCH (08:00)
--- NOTE | 2023-01-04 08:08 | Obstetrical Progress Note ---
Date of Service January 04, 2023 Assessment & Plan (1) Normal course: Pt doing well no complaints Subjective Ambulation: ambulating normally Voiding: no voiding problems Passing Gas:: Yes Diet Tolerance:: regular diet Lochia:: Small Feeding Type:: breast feeding Review of Systems All systems reviewed & are unremarkable except as noted in HPI & below Physical Exam Constitutional WD/WN, vitals as above well developed and well nourished Eyes PERRL, conjunctivae normal, anicteric sclerae Neck trachea midline, no thyromegaly Respiratory normal respiratory effort, lungs clear to auscultation Auscultation: no crackles, no rales and no wheezes Cardiovascular RRR, no murmur, no edema Gastrointestinal (Abdomen) normal bowel sounds, soft, nontender, no hepatosplenomegaly Uterus is below umbilicus Musculoskeletal no cyanosis or clubbing, extremities motor strength 5/5 Skin no rashes, warm and dry Neurologic patellar DTR's 2+ bilat, sensation intact Psychiatric A+Ox3, euthymic affect Genitourinary normal external appearance Results & Data Vital Signs (Past 12 Hours) Vital Signs Temp Pulse Resp BP BP Pulse Ox O2 Del Method 01/03/23 23:11 36.5 C 70 18 124/71 96 Room Air 01/03/23 20:45 36.5 C 70 16 105/67
[2023-01-04] MEDS ORDERED: bisacodyL 5 MG TABEC PO SCH (20:00)
== END 2023-01-04 13:31 | disposition home or self-care (01) | DRG 807 ==
LOC: OPB 06:02 → 4S1 06:09 → 4E2 14:55